=== PATIENT | male | born 1990 | race Caucasian/White ===

== ENCOUNTER 2017-11-29 20:08 | Emergency (ER) | payer SELFPAY ==
[2017-11-29 20:21] VITALS: BP 156/57; PULSE 84; TEMP 98.2; BMI 32.1
[2017-11-29] MEDS ORDERED: SODIUM CHLORIDE 0.9% 500 ML INFUS.BAG IV ONE (20:35)
[2017-11-29] MEDS ORDERED: FAMOTIDINE IV 20 MG/12 ML VIAL IVPUSH ONE (20:35)
[2017-11-29] MEDS ORDERED: ONDANSETRON 4 MG/2 ML VIAL IVPUSH ONE (20:36)
--- NOTE | 2017-11-29 20:41 | PDOC ---
Attending Attestation - Resident Resident Name: Hannah Christianson - ED Attending Attestation I have performed the following: I have examined & evaluated the patient, The case was reviewed & discussed with the resident, I agree w/resident's findings & plan - HPI HPI: 11/29/17 20:49 Pt ate chipotle this afternoon for lunch and 5 hrs later he vomted everything up. He states that he felt unwell after eating his meal. He has no fever and no chills. He has no vomiting at this time. - Physicial Exam PE: 11/29/17 20:51 His abd is slighly "unsettled" but no tenderness and no gassiness. He has no flank pain Pt has no pharyngitis. He has no fever. Pt appears well. He is not tachycardic. - Medical Decision Making 12/01/17 04:43 Pt feeling well; home with oral hydration
--- NOTE | 2017-11-29 20:46 | PDOC ---
History of Present Illness - General Chief Complaint: Nausea/Vomiting Stated Complaint: STOMACH PAIN Time Seen by Provider: 11/29/17 20:26 History Source: Patient - History of Present Illness Initial Comments: 11/30/17 13:17 26 year old male with no reported PMH presented to ED c/o vomiting. Patient states he has vomiting 3-4 times without any fevers/chills without abdominal pain, fevers/chills, diarrhea/constipation. Pt ate chipotle this afternoon for lunch and 5 hrs later he vomted everything up. He states that he felt unwell after eating his meal. He has no fever and no chills. He has no vomiting at this time. - Physicial Exam PE: 11/29/17 20:51 His abd is slighly "unsettled" but no tenderness and no gassiness. He has no flank pain Pt has no pharyngitis. He has no fever. Pt appears well. He is not tachycardic. 11/30/17 13:24 11/30/17 23:30 Past History - Past Medical History Allergies/Adverse Reactions: Allergies Allergy/AdvReac Type Severity Reaction Status Date / Time No Known Allergies Allergy Verified 11/29/17 20:21 Home Medications: Ambulatory Orders No Home Medications 0 dose .ROUTE UTDICT 05/13/12 - Immunization History Immunization Up to Date: Yes - Suicide/Smoking/Psychosocial Hx Smoking Status: No Smoking History: Never smoked Have you smoked in the past 12 months: No Number of Cigarettes Smoked Daily: 0 Information on smoking cessation initiated: No Hx Alcohol Use: No Drug/Substance Use Hx: No *Physical Exam - Vital Signs Last Vital Signs Temp Pulse Resp BP Pulse Ox 98.2 F 84 16 156/57 100 11/29/17 20:19 11/29/17 20:19 11/29/17 20:19 11/29/17 20:19 11/29/17 20:19 Medical Decision Making - Medical Decision Making 11/29/17 21:20 26 year old male *DC/Admit/Observation/Transfer Diagnosis at time of Disposition: Nausea - Discharge Dispostion Disposition: HOME Condition at time of disposition: Good Admit: No - Referrals - Patient Instructions Printed Discharge Instructions: DI for Nausea -- Adult Additional Instructions: You can take Pepcid and Maalox for relief. Follow up with your primary care doctor in the next 48 hours. We have provided a referral should you need a doctor to establish primary care. Return to the Emergency Department for any new/worsening/concerning symptoms. - Post Discharge Activity
[2017-11-29] MEDS ORDERED: BISMUTH SUBSALICYLATE 262 MG/15 ML BTL PO ONE (20:54)
[2017-11-29] MEDS ORDERED: ONDANSETRON 4 MG TABLET PO ONE (20:56)
[2017-11-29] MEDS ORDERED: ONDANSETRON *ODT* 4 MG TABLET ONE (21:13)
[2017-11-29] MEDS ORDERED: MAG HYDROX/AL HYDROX/SIMETH 30 ML UNIT-DOSE CUP PO ONE (21:14)
[2017-11-29] MEDS ORDERED: MAG HYDROX/AL HYDROX/SIMETH 30 ML UNIT-DOSE CUP ONE (21:15)
== END 2017-11-29 22:35 | disposition home or self-care (01) ==
LOC: JER 20:08
DX: R10.84 Generalized abdominal pain (principal); R11.2 Nausea with vomiting, unspecified
CPT/HCPCS: 87070; 87430; 99281-25; 99282-25

== ENCOUNTER 2017-12-29 18:52 | Emergency (ER) | payer SELFPAY ==
--- NOTE | 2017-12-29 19:18 | PDOC ---
Rapid Medical Evaluation Time Seen by Provider: 12/29/17 19:15 Medical Evaluation: Allergies Allergy/AdvReac Type Severity Reaction Status Date / Time No Known Allergies Allergy Verified 11/29/17 20:21 12/29/17 19:15 I have performed a brief in-person evaluation of this patient. The patient presents with a chief complaint of: left knee pain s/p slip and fall down 2 concrete steps Pertinent physical exam findings: suprapatellar swelling present I have ordered the following: xray The patient will proceed to the ED for further evaluation. Discharge Disposition - Diagnosis Knee pain, left - Referrals - Patient Instructions - Post Discharge Activity
[2017-12-29 19:22] VITALS: BP 146/75; PULSE 69; TEMP 98.3; BMI 34.2
--- NOTE | 2017-12-29 20:43 | PDOC ---
History of Present Illness - General Chief Complaint: Pain, Acute Stated Complaint: LEG INJURY Time Seen by Provider: 12/29/17 19:15 - History of Present Illness Initial Comments: 27-year-old male presents for evaluation after left knee injury. He states he fell down some steps about 4 days ago. He points to the anterior lateral aspect of the left knee as the area of discomfort. He states when he fell he heard a snap. He complains of instability. No prior problems with the left knee 12/29/17 20:39 Past History - Past Medical History Allergies/Adverse Reactions: Allergies Allergy/AdvReac Type Severity Reaction Status Date / Time No Known Allergies Allergy Verified 12/29/17 19:21 Home Medications: Ambulatory Orders No Home Medications 0 dose .ROUTE UTDICT 05/13/12 COPD: No - Immunization History Immunization Up to Date: Yes - Suicide/Smoking/Psychosocial Hx Smoking Status: No Smoking History: Never smoked Have you smoked in the past 12 months: No Number of Cigarettes Smoked Daily: 0 Hx Alcohol Use: No Drug/Substance Use Hx: No Substance Use Type: None Review of Systems - Review of Systems Musculoskeletal: Yes: Joint Pain All Other Systems: Reviewed and Negative *Physical Exam - Vital Signs Last Vital Signs Temp Pulse Resp BP Pulse Ox 98.3 F 69 18 146/75 98 12/29/17 19:21 12/29/17 19:21 12/29/17 19:21 12/29/17 19:21 12/29/17 19:21 - Physical Exam Comments: Left knee skin color and temperature are normal range of motion is 0 30 beyond that causes pain. He has a small intra-articular effusion. Positive lateral joint line tenderness. He has a positive Torrey's test without an endpoint. No that rash or valgus instability. Thigh and calf Is soft and nontender he has no gross sensorimotor deficits is neurovascular intact. 12/29/17 20:40 *DC/Admit/Observation/Transfer Diagnosis at time of Disposition: Knee pain, left, ACL (anterior cruciate ligament) rupture - Discharge Dispostion Disposition: HOME Condition at time of disposition: Stable Decision to Admit order: No - Referrals Referrals: Bruce Em MD [Staff Physician] - - Patient Instructions Printed Discharge Instructions: DI for Anterior Cruciate Ligament Injury Additional Instructions: It is very important fetus follow-up with orthopedic surgeon within the next 1- 2 days. The injury he sustained a require operative repair. He may wear the knee immobilizer as her mobilizing with the use of crutches and weight-bear as tolerated with use of crutches. You may remove the knee immobilizer while at home and for hygiene. It is important that he get any as straight as possible and try to work on your range of motion of your knee throughout the day. Again you only need to knee immobilizer agger walking around the use of crutches for stability. He may take Tylenol for pain only. - Post Discharge Activity
== END 2017-12-29 20:57 | disposition home or self-care (01) ==
LOC: JERFT 18:52
PROC: 2W3QXYZ Immobilization of Right Lower Leg using Other Device (ICD-10-PCS; principal; 2017-12-29)
DX: S83.511A Sprain of anterior cruciate ligament of right knee, initial encounter (principal); W10.8XXA Fall (on) (from) other stairs and steps, initial encounter; Y93.89 Activity, other specified; Y92.89 Other specified places as the place of occurrence of the external cause; Y99.8 Other external cause status
CPT/HCPCS: 73562-TC-LT-FY; 99282-25

== ENCOUNTER 2018-01-17 20:27 | Emergency (ER) | payer SELFPAY ==
[2018-01-17 20:38] VITALS: BP 140/85; PULSE 56; TEMP 98.1; BMI 34.8
--- NOTE | 2018-01-17 22:48 | PDOC ---
History of Present Illness - General Chief Complaint: Shortness of Breath Stated Complaint: SHORTNESS OF BREATH Time Seen by Provider: 01/17/18 22:38 - History of Present Illness Initial Comments: 27-year-old healthy male presents for evaluation of cough with associated chest pain when he coughs 2 days. He has no fever his cough is unproductive he has no other associated symptoms. 01/17/18 22:44 Past History - Past Medical History Allergies/Adverse Reactions: Allergies Allergy/AdvReac Type Severity Reaction Status Date / Time No Known Allergies Allergy Verified 01/17/18 20:37 Home Medications: Ambulatory Orders No Home Medications 0 dose .ROUTE UTDICT 05/13/12 COPD: No - Immunization History Immunization Up to Date: Yes - Suicide/Smoking/Psychosocial Hx Smoking Status: No Smoking History: Current some day smoker Have you smoked in the past 12 months: No Number of Cigarettes Smoked Daily: 1 Information on smoking cessation initiated: Yes 'Breaking Loose' booklet given: 01/17/18 Hx Alcohol Use: No Drug/Substance Use Hx: No Substance Use Type: None Review of Systems - Review of Systems Comments:: GENERAL/CONSTITUTIONAL: No fever or chills. No weakness. No weight change. HEAD, EYES, EARS, NOSE AND THROAT: No change in vision. No ear pain or discharge. No sore throat. CARDIOVASCULAR: + chest pain or shortness of breath. RESPIRATORY: + cough, no wheezing, or hemoptysis. GASTROINTESTINAL: No nausea, vomiting, diarrhea or constipation. No rectal bleeding. GENITOURINARY: No dysuria, frequency, or change in urination. MUSCULOSKELETAL: No joint or muscle swelling or pain. No neck or back pain. SKIN AND BREASTS: No rash or easy bruising. NEUROLOGIC: No headache, vertigo, loss of consciousness, or loss of sensation. PSYCHIATRIC: No depression or anxiety. ENDOCRINE: No increased thirst. No abnormal weight change. HEMATOLOGIC/LYMPHATIC: No anemia, easy bleeding, or history of blood clots. ALLERGIC/IMMUNOLOGIC: No hives or skin allergy. No latex allergy. 01/17/18 22:45 *Physical Exam - Vital Signs Last Vital Signs Temp Pulse Resp BP Pulse Ox 98.1 F 56 L 18 140/85 99 01/17/18 20:34 01/17/18 20:34 01/17/18 20:34 01/17/18 20:34 01/17/18 20:34 - Physical Exam Comments: GENERAL: The patient is awake, alert, and fully oriented, in no acute distress. HEAD: Normal with no signs of trauma. EYES: Pupils equal, round and reactive to light, extraocular movements intact, sclera anicteric, conjunctiva clear. ENT: Ears normal, nares patent, oropharynx clear without exudates. Moist mucous membranes. NECK: Normal range of motion, supple without lymphadenopathy, JVD, or masses. LUNGS: Breath sounds equal, clear to auscultation bilaterally. No wheezes, and no crackles. HEART: Regular rate and rhythm, normal S1 and S2 without murmur, rub or gallop. he has reproducible p the right and left ostochondral junctions. ABDOMEN: Soft, nontender, normoactive bowel sounds. No guarding, no rebound. No masses. EXTREMITIES: Normal range of motion, no edema. No clubbing or cyanosis. No cords, erythema, or tenderness. NEUROLOGICAL: Cranial nerves II through XII grossly intact. Normal speech, normal gait. PSYCH: Normal mood, normal affect. SKIN: Warm, Dry, normal turgor, no rashes or lesions noted. 01/17/18 22:45 Medical Decision Making - Medical Decision Making This is a healthy 27-year-old male with no other comorbidities presenting with a cough and is very reproducible chest pain. This may be an early bronchitis however his exam is benign. I've advised him on Motrin and Tylenol and close follow-up with his PCP or return to the ER if symptoms do not resolve. 01/17/18 22:46 *DC/Admit/Observation/Transfer Diagnosis at time of Disposition: Costochondral chest pain - Discharge Dispostion Disposition: HOME Condition at time of disposition: Stable Decision to Admit order: No - Referrals Referrals: Wong Merlos MD [Staff Physician] - - Patient Instructions Printed Discharge Instructions: Costochondritis, DI for Costochondritis Additional Instructions: Return to the emergency room if your symptoms worsen or go unresolved in the next 2-3 days. In the meantime treat your pain with Tylenol and Motrin. If your cough is bothering you at night he may take Robitussin. In the meantime he should follow up with the primary care provider I've recommended for a within next 2-3 days. - Post Discharge Activity
== END 2018-01-17 22:52 | disposition home or self-care (01) ==
LOC: JERFT 20:27
DX: M94.0 Chondrocostal junction syndrome [Tietze] (principal)
CPT/HCPCS: 99281-25